=== PATIENT | female | born 1995 | race Caucasian/White ===

== ENCOUNTER 2017-09-18 11:31 | Emergency (ER) | payer OTHER, BC ==
[2017-09-18 11:40] VITALS: BP 126/67; PULSE 68; RESP 18; TEMP 97.8; O2SAT 99
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
== END 2017-09-18 13:13 | disposition home or self-care (01) ==
LOC: NEPD 11:31
DX: S09.90XA Unspecified injury of head, initial encounter (principal); V73.6XXA Passenger on bus injured in collision with car, pick-up truck or van in traffic accident, initial encounter
CPT/HCPCS: 99283